=== PATIENT | female | born 1990 | race Hispanic/Latino ===

== ENCOUNTER 2017-06-10 13:41 | Emergency (ER) | payer SELFPAY | END 2017-06-10 14:46 | disposition home or self-care (01) | LOC: ERS 13:41 | DX: L73.2 Hidradenitis suppurativa (principal); F41.9 Anxiety disorder, unspecified; Z87.891 Personal history of nicotine dependence | CPT/HCPCS: 99282 ==

== ENCOUNTER 2017-06-17 20:35 | Emergency (ER) | payer SELFPAY ==
[2017-06-17] MEDS ORDERED: diphenhydrAMINE 25 MG CAP ONE (22:09)
== END 2017-06-17 22:34 | disposition home or self-care (01) ==
LOC: ERS 20:35
DX: B35.9 Dermatophytosis, unspecified (principal); R21 Rash and other nonspecific skin eruption; F41.9 Anxiety disorder, unspecified; Z87.891 Personal history of nicotine dependence
CPT/HCPCS: 99282

== ENCOUNTER 2017-10-08 11:53 | Emergency (ER) | payer SELFPAY, OTHER | END 2017-10-08 13:05 | disposition left against medical advice (07) | LOC: ERS 11:53 | DX: Z53.21 Procedure and treatment not carried out due to patient leaving prior to being seen by health care provider (principal) ==

== ENCOUNTER 2017-11-27 20:17 | Emergency (ER) | payer OTHER, SELFPAY ==
[~2017-11-27 20:17] MED LIST: ISOVUE-370 76%-LOCM 1 ML ONE
[2017-11-27 20:40] LABS: Bilirubin Negative (Negative); Blood, Urine Negative (Negative); Clarity CLOUDY (Clear); Glucose, Urine (Dipstick) Negative (Negative); Leukocyte Negative (Negative); Nitrite Negative (Negative); Protein, Urine (Dipstick) Negative (Neg-Trace); Specific Gravity, Urine 1.021 (1.002-1.036); Urobilinogen 0.2 mg/dL (0.2-1.0); pH, Urine 7.5 (5.0-9.0)
[2017-11-27 20:47] LABS: Pregnancy Test - Urine (BHCG) Negative (Negative); Pregu Control Background? CLEAR/WHITE (CLR/WHITE); Pregu Control Bar Appear? YES (CONTROL BAR); Specific Gravity 1.021 (1.002-1.036)
[2017-11-27 21:13] LABS: #Basophils 0.1 thou/uL (0.0-0.2); #Eosinphils 0.1 thou/uL (0.0-0.7); #Lymphocytes 1.9 thou/uL (1.20-3.40); #Monocytes 0.5 thou/uL (0.11-0.59); #Neutrophils 5.7 thou/uL (1.40-6.50); %Basophils 0.8 % (0.0-1.0); %Eosinophils 1.8 % (0.0-10.0); %Neutrophils 68.5 % (42.0-75.0); Hemoglobin 13.8 g/dL (12.0-16.0); Mean Corpuscular Hemoglobin 32.9 pg (27.0-31.0); Mean Corpuscular Volume 91.4 fl (81.0-99.0); Mean Platelet Volume 8.4 fL (7.4-10.4); Platelet Count 239 thou/uL (130-400); RBC Distribution Width 11.6 % (11.5-14.5); Red Blood Cell (RBC) Count 4.18 mill/uL (4.20-5.40); White Blood Cell (WBC) Count 8.3 thou/uL (4.8-10.8)
[2017-11-27 21:34] LABS: ALT (SGPT) 21 U/L (8-55); AST (SGOT) 15 U/L (5-34); Albumin 4.3 g/dL (3.5-5.0); Alkaline Phosphatase 74 U/L (40-150); Anion Gap 12 mmol/L (10-20); BUN (Urea Nitrogen) 9 mg/dL (7.0-18.7); Bilirubin, Total 0.4 mg/dL (0.2-1.2); Calc. Creatinine Clearance 0 mL/min (70-130); Calcium 9.3 mg/dL (7.8-10.44); Carbon Dioxide 25 mmol/L (22-29); Chloride 106 mmol/L (98-107); Estimated GFR-MDRD Greater than 90; Globulin 2.9 g/dL (2.4-3.5); Glucose 131 mg/dL (70-105); Lipase 20 U/L (8-78); Potassium 3.3 mmol/L (3.5-5.1); Protein, Total 7.2 g/dL (6.0-8.3); Sodium 140 mmol/L (136-145)
[2017-11-27] MEDS ORDERED: Ketorolac Tromethamine 30 MG/ML VIAL ONE (22:28)
--- NOTE | 2017-11-27 22:57 | CT ---
CT ABDOMEN AND PELVIS WITH IV CONTRAST 11/27/17 HISTORY: Abdominal pain. Patient states left sided flank pain that started one day ago and initially started o n the right but moved to the left. History of prior cholecystectomy and hysterectomy. COMPARISON: Noncontrast CT abdomen and pelvis on 03/18/17. FINDINGS: Lung bases remain clear. Postsurgical changes related to cholecystectomy are noted. There is stable calcifications in the brianda pheral aspect of the right hepatic lobe. Liver is otherwise normal in appearance. A 1.7 cm hypodense lesion is seen within the mid portion right kidney demonstrating fluid attenuation suggesting a small parapelvic renal cyst. The kidneys otherwise have a normal CT appearance bilatera lly . The spleen, pancreas, bilateral adrenal glands, and urinary bladder demonstrate a normal CT appearanc e. There is evidence of hysterectomy. The appendix is visualized and normal in caliber. Midline scarring is seen in an infraumbilical location. The left ovary again appears mildly enlarged, but this is a stable finding. There is no free fluid, fluid collection, or lymphadenopathy seen in the abdominal or pelvis. IMPRESSION: 1. No acute findings in the abdomen or pelvis. 2. Postsurgical changes related to cholecystectomy and hysterectomy. 3. Right renal parapelvic cyst. POS: [facility]
== END 2017-11-27 22:47 | disposition home or self-care (01) ==
LOC: ERS 20:17
DX: F41.9 Anxiety disorder, unspecified; R10.31 Right lower quadrant pain
CPT/HCPCS: 74177; 80053; 81003; 81025; 83690; 85025; 96361; 96374; J1885

== ENCOUNTER 2018-06-26 10:14 | Emergency (ER) | payer SELFPAY ==
[2018-06-26 11:16] LABS: #Eosinphils 0.2 thou/uL (0.0-0.7); #Lymphocytes 1.5 thou/uL (1.20-3.40); #Monocytes 0.5 thou/uL (0.11-0.59); #Neutrophils 4.3 thou/uL (1.40-6.50); %Basophils 0.5 % (0.0-1.0); %Eosinophils 2.4 % (0.0-10.0); %Lymphocytes 22.5 % (21.0-51.0); %Monocytes 7.6 % (0.0-10.0); %Neutrophils 66.9 % (42.0-75.0); Hemoglobin 13.5 g/dL (12.0-16.0); Mean Corpuscular HGB CONC 33.9 g/dL (32.0-36.0); Mean Corpuscular Hemoglobin 31.9 pg (27.0-31.0); Mean Corpuscular Volume 94.2 fL (78.0-98.0); Mean Platelet Volume 8.4 fL (7.4-10.4); Platelet Count 252 thou/uL (130-400); RBC Distribution Width 11.9 % (11.5-14.5); Red Blood Cell (RBC) Count 4.25 mill/uL (4.20-5.40); White Blood Cell (WBC) Count 6.5 thou/uL (4.8-10.8)
[2018-06-26 11:29] LABS: Pregnancy Test - Urine (BHCG) Negative (Negative); Pregu Control Background? CLEAR/WHITE (CLR/WHITE); Pregu Control Bar Appear? YES (CONTROL BAR)
[2018-06-26 11:30] LABS: ALT (SGPT) 17 U/L (8-55); AST (SGOT) 13 U/L (5-34); Albumin 4.3 g/dL (3.5-5.0); Alkaline Phosphatase 74 U/L (40-150); Anion Gap 12 mmol/L (10-20); BUN (Urea Nitrogen) 10 mg/dL (7.0-18.7); Bilirubin, Total 0.4 mg/dL (0.2-1.2); Calc. Creatinine Clearance 0 mL/min (70-130); Calcium 9.8 mg/dL (7.8-10.44); Carbon Dioxide 26 mmol/L (22-29); Chloride 105 mmol/L (98-107); Estimated GFR-MDRD Greater than 90; Globulin 2.8 g/dL (2.4-3.5); Glucose 89 mg/dL (70-105); Lipase 20 U/L (8-78); Potassium 3.8 mmol/L (3.5-5.1); Protein, Total 7.1 g/dL (6.0-8.3); Sodium 139 mmol/L (136-145)
[2018-06-26 11:33] LABS: Bilirubin Negative (Negative); Blood, Urine Negative (Negative); Clarity CLEAR (Clear); Glucose, Urine (Dipstick) Negative (Negative); Leukocyte Negative (Negative); Nitrite Negative (Negative); Protein, Urine (Dipstick) Negative (Neg-Trace); Specific Gravity, Urine 1.019 (1.002-1.036)
[2018-06-26 11:35] LABS: Specific Gravity 1.019 (1.002-1.036)
== END 2018-06-26 12:13 | disposition home or self-care (01) ==
LOC: ERS 10:14
DX: R10.30 Lower abdominal pain, unspecified (principal); F41.9 Anxiety disorder, unspecified
CPT/HCPCS: 36415; 80053; 81003; 81025; 83690; 85025; 99284

== ENCOUNTER 2018-11-03 19:40 | Emergency (ER) | payer SELFPAY ==
[2018-11-03] MEDS ORDERED: Ketorolac Tromethamine 30 MG/ML VIAL ONE (19:59)
[2018-11-03] MEDS ORDERED: Ondansetron PF 4 MG/2 ML Vial ONE (19:59)
[2018-11-03 20:41] LABS: #Eosinphils 0.1 thou/uL (0.0-0.7); #Lymphocytes 0.9 thou/uL (1.20-3.40); #Monocytes 0.5 thou/uL (0.11-0.59); #Neutrophils 13.5 thou/uL (1.40-6.50); %Basophils 0.1 % (0.0-1.0); %Eosinophils 0.6 % (0.0-10.0); %Lymphocytes 5.8 % (21.0-51.0); %Monocytes 3.2 % (0.0-10.0); %Neutrophils 90.4 % (42.0-75.0); Mean Corpuscular HGB CONC 34.2 g/dL (32.0-36.0); Mean Corpuscular Hemoglobin 32.3 pg (27.0-31.0); Mean Corpuscular Volume 94.3 fL (78.0-98.0); Mean Platelet Volume 8.8 fL (7.4-10.4); Platelet Count 226 thou/uL (130-400); RBC Distribution Width 11.9 % (11.5-14.5); Red Blood Cell (RBC) Count 4.33 mill/uL (4.20-5.40); White Blood Cell (WBC) Count 14.9 thou/uL (4.8-10.8)
[2018-11-03 20:47] LABS: Bilirubin Negative (Negative); Blood, Urine Small (Negative); Clarity CLEAR (Clear); Glucose, Urine (Dipstick) Negative (Negative); Leukocyte Moderate (Negative); Nitrite Negative (Negative); Protein, Urine (Dipstick) 30 mg/dL (Neg-Trace); Specific Gravity, Urine 1.017 (1.002-1.036); Urobilinogen 0.2 mg/dL (0.2-1.0)
[2018-11-03 20:47] LABS: ALT (SGPT) 16 U/L (8-55); AST (SGOT) 13 U/L (5-34); Albumin 4.3 g/dL (3.5-5.0); Alkaline Phosphatase 82 U/L (40-150); Anion Gap 12 mmol/L (10-20); BUN (Urea Nitrogen) 10 mg/dL (7.0-18.7); Bilirubin, Total 0.4 mg/dL (0.2-1.2); Calc. Creatinine Clearance 0 mL/min (70-130); Calcium 9.5 mg/dL (7.8-10.44); Carbon Dioxide 27 mmol/L (22-29); Chloride 104 mmol/L (98-107); Estimated GFR-MDRD Greater than 90; Globulin 2.9 g/dL (2.4-3.5); Glucose 88 mg/dL (70-105); Potassium 3.7 mmol/L (3.5-5.1); Protein, Total 7.2 g/dL (6.0-8.3); Sodium 139 mmol/L (136-145)
[2018-11-03 20:48] LABS: Bacteria/HPF 1+ HPF (None Seen); Hyaline Casts/LPF 7-10 HYALINE CAST LPF (0-3 Hyaline); Squamous Epithelial None Seen HPF (0-3)
[2018-11-03] MEDS ORDERED: cefTRIAXone\\ROCEPHIN 1 GM VIAL ONE (21:13)
[2018-11-03] MEDS ORDERED: Sodium Chloride 0.9% 100 ML ONE (21:13)
== END 2018-11-03 21:57 | disposition home or self-care (01) ==
LOC: ERS 19:40
DX: N10 Acute pyelonephritis (principal); F41.9 Anxiety disorder, unspecified
CPT/HCPCS: 80053; 81003; 81015; 85025; 96365; 96375; J0696; J1885; J2405; J7050

== ENCOUNTER 2019-08-31 19:47 | Emergency (ER) | payer SELFPAY ==
[2019-08-31 21:16] LABS: #Basophils 0.1 thou/uL (0.0-0.2); #Eosinphils 0.1 thou/uL (0.0-0.7); #Monocytes 0.7 thou/uL (0.11-0.59); #Neutrophils 6.3 thou/uL (1.40-6.50); %Basophils 0.6 % (0.0-1.0); %Eosinophils 1.3 % (0.0-10.0); %Lymphocytes 21.8 % (21.0-51.0); %Monocytes 7.1 % (0.0-10.0); %Neutrophils 69.1 % (42.0-75.0); Hemoglobin 13.9 g/dL (12.0-16.0); Mean Corpuscular HGB CONC 34.7 g/dL (32.0-36.0); Mean Corpuscular Hemoglobin 31.5 pg (27.0-31.0); Mean Corpuscular Volume 90.8 fL (78.0-98.0); Mean Platelet Volume 8.6 fL (7.4-10.4); Platelet Count 261 thou/uL (130-400); RBC Distribution Width 11.5 % (11.5-14.5); White Blood Cell (WBC) Count 9.1 thou/uL (4.8-10.8)
[2019-08-31 21:38] LABS: ALT (SGPT) 21 U/L (8-55); AST (SGOT) 16 U/L (5-34); Albumin 4.4 g/dL (3.5-5.0); Alkaline Phosphatase 77 U/L (40-110); Anion Gap 12 mmol/L (10-20); BUN (Urea Nitrogen) 10 mg/dL (7.0-18.7); Bilirubin, Total 0.7 mg/dL (0.2-1.2); Calc. Creatinine Clearance 0 mL/min (70-130); Calcium 9.4 mg/dL (7.8-10.44); Carbon Dioxide 27 mmol/L (22-29); Chloride 103 mmol/L (98-107); Estimated GFR-MDRD Greater than 90; Globulin 2.9 g/dL (2.4-3.5); Glucose 89 mg/dL (70-105); Lipase 18 U/L (8-78); Potassium 3.7 mmol/L (3.5-5.1); Protein, Total 7.3 g/dL (6.0-8.3); Sodium 138 mmol/L (136-145)
[2019-08-31 21:54] LABS: Bilirubin Negative (Negative); Blood, Urine Negative (Negative); Clarity Clear (Clear); Glucose, Urine (Dipstick) Normal (Negative); Leukocyte Negative Leu/uL (Negative); Nitrite Negative (Negative); Protein, Urine (Dipstick) 10 mg/dL (Neg-Trace)
[2019-08-31 21:58] LABS: Pregnancy Test - Urine (BHCG) Negative (Negative); Pregu Control Background? CLEAR/WHITE (CLR/WHITE); Pregu Control Bar Appear? YES (CONTROL BAR); Specific Gravity 1.027 (1.002-1.036)
[2019-08-31] MEDS ORDERED: Ketorolac Tromethamine 30 MG/ML VIAL ONE (22:30)
== END 2019-08-31 23:22 | disposition home or self-care (01) ==
LOC: ERS 19:47
DX: M54.9 Dorsalgia, unspecified (principal); F41.9 Anxiety disorder, unspecified; Z79.899 Other long term (current) drug therapy
CPT/HCPCS: 36415; 80053; 81003; 81025; 83690; 85025; 96372; 99284; J1885

== ENCOUNTER 2020-05-29 12:33 | Emergency (ER) | payer OTHER, SELFPAY ==
[2020-05-29] MEDS ORDERED: Ondansetron ODT 4 MG TAB ONE (13:11)
[2020-05-29] MEDS ORDERED: Dexamethasone 10 MG/ML VIAL ONE (13:12)
[2020-05-29] MEDS ORDERED: Bicillin LA 1.2 MILLION UNITS/2 ML SYRINGE ONE (14:33)
== END 2020-05-29 14:59 | disposition home or self-care (01) ==
LOC: ERS 12:33
DX: J02.0 Streptococcal pharyngitis (principal); F41.9 Anxiety disorder, unspecified
CPT/HCPCS: 87430; 96372; 99283; J0561; J1100; Q0162

== ENCOUNTER 2020-06-26 16:28 | Emergency (ER) | payer OTHER, SELFPAY ==
[2020-06-26 18:47] LABS: #Eosinphils 0.1 thou/uL (0.0-0.7); #Lymphocytes 2.2 thou/uL (1.20-3.40); #Monocytes 0.9 thou/uL (0.11-0.59); #Neutrophils 11.5 thou/uL (1.40-6.50); %Basophils 0.3 % (0.0-1.0); %Lymphocytes 14.8 % (21.0-51.0); %Monocytes 5.8 % (0.0-10.0); Hemoglobin 14.8 g/dL (12.0-16.0); Mean Corpuscular HGB CONC 35.3 g/dL (32.0-36.0); Mean Corpuscular Hemoglobin 32.9 pg (27.0-31.0); Mean Corpuscular Volume 93.1 fL (78.0-98.0); Mean Platelet Volume 8.3 fL (7.4-10.4); Platelet Count 291 thou/uL (130-400); White Blood Cell (WBC) Count 14.7 thou/uL (4.8-10.8)
[2020-06-26 19:08] LABS: ALT (SGPT) 57 U/L (8-55); AST (SGOT) 34 U/L (5-34); Albumin 4.5 g/dL (3.5-5.0); Alkaline Phosphatase 82 U/L (40-110); Anion Gap 14 mmol/L (10-20); BUN (Urea Nitrogen) 8 mg/dL (7.0-18.7); Bilirubin, Total 0.3 mg/dL (0.2-1.2); Calc. Creatinine Clearance 0 mL/min (70-130); Calcium 9.9 mg/dL (7.8-10.44); Carbon Dioxide 28 mmol/L (22-29); Chloride 102 mmol/L (98-107); Estimated GFR-MDRD 90; Globulin 3.4 g/dL (2.4-3.5); Glucose 104 mg/dL (70-105); Lipase 16 U/L (8-78); Potassium 4.3 mmol/L (3.5-5.1); Protein, Total 7.9 g/dL (6.0-8.3); Sodium 140 mmol/L (136-145)
[2020-06-26 20:10] LABS: Bilirubin Negative (Negative); Blood, Urine Large (Negative); Clarity Cloudy (Clear); Glucose, Urine (Dipstick) Negative (Negative); Ketone, Urine Negative (Negative); Leukocyte Small (Negative); Nitrite Positive (Negative); Protein, Urine (Dipstick) 100 mg/dL (Neg-Trace); Urobilinogen 0.2 mg/dL (Less than 2); pH, Urine 6.5 (5.0-9.0)
[2020-06-26 20:11] LABS: Specific Gravity, Urine 1.019 (1.002-1.036)
[2020-06-26 20:13] LABS: Pregnancy Test - Urine (BHCG) Negative (Negative); Pregu Control Background? CLEAR/WHITE (CLR/WHITE); Pregu Control Bar Appear? YES (CONTROL BAR); Specific Gravity 1.019 (1.002-1.036)
[2020-06-26 20:20] LABS: Bacteria/HPF 4+ HPF (None Seen); Squamous Epithelial 0-3 HPF (0-3); WBC/HPF Greater Than 50 HPF (0-3)
[2020-06-26] MEDS ORDERED: cefTRIAXone\\ROCEPHIN 2 GM VIAL ONE (21:03)
[2020-06-26] MEDS ORDERED: Morphine 4 MG/ML VIAL ONE (21:03)
[2020-06-26] MEDS ORDERED: Ketorolac Tromethamine 30 MG/ML VIAL ONE (21:03)
== END 2020-06-26 22:00 | disposition home or self-care (01) ==
LOC: ERS 16:28
DX: N39.0 Urinary tract infection, site not specified (principal); F41.9 Anxiety disorder, unspecified
CPT/HCPCS: 36415; 80053; 81003; 81015; 81025; 83690; 85025; 87077; 87086; 87186; 96365; 96375; J0696; J1885; J2270

== ENCOUNTER 2020-09-25 09:18 | Emergency (ER) | payer OTHER, SELFPAY ==
--- NOTE | 2020-09-25 10:04 | RAD ---
EXAM: Chest PA and lateral: HISTORY: Chest pain. COMPARISON: 08/12/2018, 06/28/2016 FINDINGS: Heart: Normal cardiac silhouette Aorta: Unremarkable Pulmonary vessels: Normal Costophrenic angles: Costophrenic angles are clear. Lungs: No consolidation or masses. Pneumothorax: No pneumothorax Osseous structures: No osseous abnormalities IMPRESSION: No acute cardiopulmonary process.
[2020-09-25 19:34] LABS: SARS-CoV-2 PCR by NAA Not Detected (NotDetected)
== END 2020-09-25 12:35 | disposition home or self-care (01) ==
LOC: ERS 09:18
DX: R07.89 Other chest pain (principal); Z20.822 Contact with and (suspected) exposure to COVID-19
CPT/HCPCS: 71046; 87635; 93005; U0003; U0005

== ENCOUNTER 2021-07-28 12:04 | Emergency (ER) | payer SELFPAY ==
[2021-07-29 15:43] LABS: SARS-CoV-2 PCR by NAA Not Detected (NotDetected)
== END 2021-07-28 13:50 | disposition home or self-care (01) ==
LOC: ERS 12:04
DX: J20.9 Acute bronchitis, unspecified (principal); Z20.822 Contact with and (suspected) exposure to COVID-19
CPT/HCPCS: 99284; U0003; U0005

== ENCOUNTER 2022-07-06 09:39 | Emergency (ER) | payer OTHER, SELFPAY ==
[2022-07-06 10:45] LABS: #Eosinphils 0.1 thou/uL (0.0-0.7); #Lymphocytes 1.4 thou/uL (1.20-3.40); #Monocytes 0.9 thou/uL (0.11-0.59); #Neutrophils 4.7 thou/uL (1.40-6.50); %Basophils 0.1 % (0.0-1.0); %Eosinophils 1.9 % (0.0-10.0); Hemoglobin 14.6 g/dL (12.0-16.0); Mean Corpuscular HGB CONC 33.7 g/dL (32.0-36.0); Mean Corpuscular Hemoglobin 31.8 pg (27.0-31.0); Mean Corpuscular Volume 94.3 fl (78.0-98.0); Mean Platelet Volume 8.4 fL (7.4-10.4); Platelet Count 281 10x3/uL (130-400); RBC Distribution Width 11.7 % (11.5-14.5); Red Blood Cell (RBC) Count 4.59 mill/uL (4.20-5.40); White Blood Cell (WBC) Count 7.1 10x3/uL (4.8-10.8)
[2022-07-06] MEDS ORDERED: Ketorolac Tromethamine 30 MG/ML VIAL ONE (10:52)
[2022-07-06] MEDS ORDERED: Mag-Al 1200 mg/1200 mg/30 ML UDCUP ONE (10:52)
[2022-07-06] MEDS ORDERED: Dicyclomine 20 MG/2 ML VIAL ONE (10:52)
[2022-07-06] MEDS ORDERED: Lidocaine Viscous Sol 2% 15 ml UD Cup ONE (10:52)
[2022-07-06] MEDS ORDERED: Ondansetron ODT 8 MG TAB ONE (10:52)
[2022-07-06 11:17] LABS: ALT (SGPT) 32 U/L (8-55); AST (SGOT) 24 U/L (5-34); Albumin 4.4 g/dL (3.5-5.0); Alkaline Phosphatase 73 U/L (40-110); Anion Gap 15 mmol/L (10-20); BUN (Urea Nitrogen) 7 mg/dL (7.0-18.7); Bilirubin, Total 0.5 mg/dL (0.2-1.2); Calc. Creatinine Clearance 0 mL/min (70-130); Calcium 9.3 mg/dL (7.8-10.44); Carbon Dioxide 24 mmol/L (22-29); Chloride 103 mmol/L (98-107); Estimated GFR 118; Globulin 2.9 g/dL (2.4-3.5); Glucose 87 mg/dL (70-105); Potassium 3.5 mmol/L (3.5-5.1); Protein, Total 7.3 g/dL (6.0-8.3); Sodium 138 mmol/L (136-145)
[2022-07-06 11:23] LABS: Bacteria/HPF None Seen HPF (None Seen); Bilirubin Negative (Negative); Blood, Urine Negative (Negative); Clarity Turbid (Clear); Glucose, Urine (Dipstick) Normal (Negative); Ketone, Urine Trace mg/dL (Negative); Leukocyte 25 Leu/uL (Negative); Nitrite Negative (Negative); Pregnancy Test - Urine (BHCG) Negative (Negative); Pregu Control Background? CLEAR/WHITE (CLR/WHITE); Pregu Control Bar Appear? YES (CONTROL BAR); Protein, Urine (Dipstick) 50 mg/dL (Neg-Trace); RBC/HPF 0-3 HPF (0-3); Specific Gravity 1.038 (1.002-1.036); Specific Gravity, Urine 1.038 (1.002-1.036)
[2022-07-06] MEDS ORDERED: Iopamidol-370 76% 500 ML 1 ML ONE (14:14)
== END 2022-07-06 12:58 | disposition home or self-care (01) ==
LOC: ERS 09:39
DX: K64.4 Residual hemorrhoidal skin tags (principal)
CPT/HCPCS: 36415; 74177; 80053; 81003; 81015; 81025; 82274; 83690; 85025; 96372; J1885; Q0162; Q9967

== ENCOUNTER 2023-09-10 20:51 | Emergency (ER) | payer BC, SELFPAY ==
[2023-09-10] MEDS ORDERED: Ketorolac Tromethamine 30 MG (1 mL) VIAL ONE (21:51)
[2023-09-10 22:04] LABS: #Eosinphils 0.2 thou/uL (0.0-0.7); #Monocytes 0.7 thou/uL (0.11-0.59); #Neutrophils 6.1 thou/uL (1.40-6.50); %Basophils 0.4 % (0.0-1.0); %Eosinophils 2.5 % (0.0-10.0); %Lymphocytes 23.1 % (21.0-51.0); %Monocytes 7.2 % (0.0-10.0); %Neutrophils 66.5 % (42.0-75.0); Hematocrit 41.3 % (36.0-47.0); Hemoglobin 14.2 g/dL (12.0-16.0); Mean Corpuscular HGB CONC 34.4 g/dL (32.0-36.0); Mean Corpuscular Hemoglobin 31.8 pg (27.0-31.0); Mean Corpuscular Volume 92.4 fl (78.0-98.0); Mean Platelet Volume 9.8 fL (7.4-10.4); Platelet Count 383 10x3/uL (130-400); RBC Distribution Width 12.9 % (11.5-14.5); Red Blood Cell (RBC) Count 4.47 mill/uL (4.20-5.40); White Blood Cell (WBC) Count 9.2 10x3/uL (4.8-10.8)
[2023-09-10 22:29] LABS: ALT (SGPT) 35 U/L (8-55); AST (SGOT) 19 U/L (5-34); Albumin 4.4 g/dL (3.5-5.0); Alkaline Phosphatase 72 U/L (40-110); Anion Gap 11 mmol/L (10-20); BUN (Urea Nitrogen) 11 mg/dL (7.0-18.7); Bilirubin, Total 0.3 mg/dL (0.2-1.2); Calc. Creatinine Clearance 0 mL/min (70-130); Calcium 9.6 mg/dL (7.8-10.44); Carbon Dioxide 27 mmol/L (22-29); Chloride 106 mmol/L (98-107); Estimated GFR 108; Glucose 109 mg/dL (70-105); Protein, Total 7.4 g/dL (6.0-8.3); Sodium 140 mmol/L (136-145)
[2023-09-10 22:31] LABS: Troponin I Less than 0.010 ng/mL (< 0.028)
[2023-09-10] MEDS ORDERED: Lorazepam 1 MG TAB ONE (22:43)
[2023-09-10] MEDS ORDERED: Orphenadrine Citrate 60 MG/2 ML VIAL ONE (22:43)
== END 2023-09-11 00:48 | disposition home or self-care (01) ==
LOC: ERS 20:51
DX: R07.9 Chest pain, unspecified (principal)
CPT/HCPCS: 36415; 71045; 80053; 84484; 85025; 93005; 96372; J1885; J2360

== ENCOUNTER 2023-10-13 10:58 | Outpatient (CLI) | payer BC | END 2023-10-13 10:59 | disposition home or self-care (01) | LOC: DTY/OP 10:58 | PROVIDERS: ATTEND Surgery | DX: E66.01 Morbid (severe) obesity due to excess calories (principal); Z68.41 Body mass index [BMI] 40.0-44.9, adult | CPT/HCPCS: 97802 ==

== ENCOUNTER 2023-11-04 14:59 | Outpatient (CLI) | payer BC ==
[2023-11-04 17:07] LABS: #Basophils 0.1 10x3/uL (0.0-0.2); #Eosinphils 0.2 10x3/uL (0.0-0.5); #Monocytes 0.7 10x3/uL (0.0-1.1); #Neutrophils 7.3 10x3/uL (1.5-8.4); %Basophils 0.5 % (0.0-2.0); %Eosinophils 1.6 % (0.0-6.0); %Monocytes 6.9 % (0.0-10.0); %Neutrophils 74.7 % (40.0-75.0); Hematocrit 38.4 % (34.9-44.5); Hemoglobin 13.4 g/dL (12.0-15.5); Mean Corpuscular HGB CONC 34.9 g/dL (32.0-36.0); Mean Corpuscular Hemoglobin 30.9 pg (27.0-33.0); Mean Corpuscular Volume 88.7 fl (81.6-98.3); Mean Platelet Volume 10.4 fl (7.4-10.4); Platelet Count 352 10x3/uL (150-450); Red Blood Cell (RBC) Count 4.33 10x6/uL (3.90-5.03); White Blood Cell (WBC) Count 9.8 10x3/uL (3.5-10.5)
[2023-11-04 17:51] LABS: ALT (SGPT) 32 U/L (8-55); AST (SGOT) 19 U/L (5-34); Albumin 4.1 g/dL (3.5-5.0); Alkaline Phosphatase 65 U/L (40-110); Anion Gap 14 mmol/L (10-20); BUN (Urea Nitrogen) 9 mg/dL (7.0-18.7); Bilirubin, Total 0.6 mg/dL (0.2-1.2); Calc. Creatinine Clearance 0 mL/min (70-130); Carbon Dioxide 22 mmol/L (22-29); Chloride 106 mmol/L (98-107); Estimated GFR 118; Globulin 2.7 g/dL (2.4-3.5); Glucose 81 mg/dL (70-105); Potassium 4.1 mmol/L (3.5-5.1); Protein, Total 6.8 g/dL (6.0-8.3); Sodium 138 mmol/L (136-145)
[2023-11-04 21:02] LABS: Hemoglobin A1c 4.8 % (4.0-6.0)
== END 2023-11-04 15:00 | disposition home or self-care (01) ==
LOC: LABBT 14:59
PROVIDERS: ATTEND Surgery
DX: Z01.812 Encounter for preprocedural laboratory examination (principal); E66.01 Morbid (severe) obesity due to excess calories
CPT/HCPCS: 80053; 83036; 85025

== ENCOUNTER 2023-11-04 17:00 | Inpatient (IN) | payer BC ==
[2023-11-09] MEDS ORDERED: Sodium Chloride 0.9% 100 ML ONE (10:25)
[2023-11-09] MEDS ORDERED: Heparin 5,000 UNITS/ML VIAL ONE (10:25)
[2023-11-09] MEDS ORDERED: CEFAZOLIN 2 GM VIAL ONE (10:25)
[2023-11-09] MEDS ORDERED: Lidocaine 1% PF 5 ML VIAL ONE (12:43)
[2023-11-09] MEDS ORDERED: fentaNYL PF 100 MCG/2 ML SYRINGE ONE (12:43)
[2023-11-09] MEDS ORDERED: PROPOFOL 20 ML ONE (12:43)
[2023-11-09] MEDS ORDERED: Rocuronium Bromide 10 MG/ML (10ML VIAL) ONE (12:43)
[2023-11-09] MEDS ORDERED: Propofol 500 MG/50 ML VIAL ONE (12:46)
[2023-11-09] MEDS ORDERED: Bupivacaine 0.25% HCL 30 ML VIAL ONE (12:53)
[2023-11-09] MEDS ORDERED: EPINEPHrine 1 MG/ML VIAL ONE (12:53)
[2023-11-09] MEDS ORDERED: Dexamethasone 20 MG/5 ML VIAL ONE (13:31)
[2023-11-09] MEDS ORDERED: ePHEDrine Sulfate 50 MG/10 ML VIAL ONE (13:35)
[2023-11-09] MEDS ORDERED: Ondansetron PF 4 MG/2 ML Vial ONE ×2 (14:17→15:38)
[2023-11-09] MEDS ORDERED: SUGAMMADEX SODIUM 200 MG/2 ML VIAL ONE (14:27)
[2023-11-09] MEDS ORDERED: Glucagon 1 MG/ML KIT IM PRN (14:49)
[2023-11-09] MEDS ORDERED: diphenhydrAMINE 50 MG/ML VIAL IVP PRN ×2 (14:49→14:52)
[2023-11-09] MEDS ORDERED: hydrALAZINE 20 MG/ML VIAL SLOW IVP PRN (14:49)
[2023-11-09] MEDS ORDERED: Dextrose 5% in Water 1,000 ML IV PRN (14:49)
[2023-11-09] MEDS ORDERED: Promethazine HCl 25 MG/ML VIAL IM PRN ×2 (14:49→14:52)
[2023-11-09] MEDS ORDERED: Ondansetron PF 4 MG/2 ML Vial IVP PRN (14:49)
[2023-11-09] MEDS ORDERED: Hydrocodone-Acetamin 15 ML UDCUP PO PRN ×2 (14:49→14:54)
[2023-11-09] MEDS ORDERED: Dextrose 50% Abboject 50 ML SYRINGE SLOW IVP PRN (14:49)
[2023-11-09] MEDS ORDERED: Ipratropium/Albuterol 3 ML NEB NEB PRN (14:49)
[2023-11-09] MEDS ORDERED: Ondansetron HCl/PF 4 MG/2 ML Vial IVP PRN (14:52)
[2023-11-09] MEDS ORDERED: Promethazine HCl 25 MG/ML VIAL SLOW IVP PRN (14:52)
[2023-11-09] MEDS ORDERED: diphenhydrAMINE 50 MG/ML VIAL IM PRN (14:52)
[2023-11-09] MEDS ORDERED: FENTANYL 500 MCG/10 ML VIAL 2,000 MCG in Sodium Chloride 0.9% 60 ML IV PRN (14:52)
[2023-11-09] MEDS ORDERED: diphenhydrAMINE 25 MG CAP PO PRN (14:52)
[2023-11-09] MEDS ORDERED: Naloxone HCl 0.4 mg/ml Vial IV PRN (14:52)
[2023-11-09] MEDS ORDERED: Communication Order-Pharmacy FS SCH (15:00)
[2023-11-09] MEDS ORDERED: Fentanyl CADD 100 ML IVPB SCH (15:00)
[2023-11-09] MEDS ORDERED: fentaNYL 50 mcg/mL 1 mL Vial ONE (15:08)
[2023-11-09] MEDS ORDERED: Promethazine HCl 25 MG/ML VIAL ONE (15:38)
[2023-11-09] MEDS: D5 1/2 NS w/20 mEq KCL 1,000 ML IV SCH (20:13)
[2023-11-09] MEDS: Ondansetron PF 4 MG/2 ML Vial IVP PRN (20:50)
[2023-11-09 22:24] VITALS: BMI 40.4
[2023-11-10 05:58] LABS: #Monocytes 0.7 thou/uL (0.11-0.59); #Neutrophils 7.6 thou/uL (1.40-6.50); %Basophils 0.2 % (0.0-1.0); %Lymphocytes 15.7 % (21.0-51.0); %Monocytes 6.9 % (0.0-10.0); Hematocrit 41.5 % (36.0-47.0); Hemoglobin 14.1 g/dL (12.0-16.0); Mean Corpuscular Hemoglobin 31.1 pg (27.0-31.0); Mean Corpuscular Volume 91.6 fl (78.0-98.0); Mean Platelet Volume 10.5 fL (7.4-10.4); Platelet Count 366 10x3/uL (130-400); RBC Distribution Width 12.6 % (11.5-14.5); Red Blood Cell (RBC) Count 4.53 mill/uL (4.20-5.40); White Blood Cell (WBC) Count 9.9 10x3/uL (4.8-10.8)
[2023-11-10 06:07] LABS: Anion Gap 14 mmol/L (10-20); BUN (Urea Nitrogen) 5 mg/dL (7.0-18.7); Calc. Creatinine Clearance 181 mL/min (70-130); Calcium 9.4 mg/dL (7.8-10.44); Carbon Dioxide 24 mmol/L (22-29); Chloride 105 mmol/L (98-107); Estimated GFR 114; Glucose 108 mg/dL (70-105); Potassium 4.5 mmol/L (3.5-5.1); Sodium 138 mmol/L (136-145)
[2023-11-10] MEDS ORDERED: Ketorolac Tromethamine 30 MG (1 mL) VIAL IVP PRN (09:28)
[2023-11-10] MEDS: Enoxaparin 40 MG (0.4 mL) SYRINGE SC SCH (10:08)
[2023-11-10] MEDS: Pantoprazole 40 MG VIAL IVP SCH (10:08)
[2023-11-10] MEDS: Hydrocodone-Acetamin 15 ML UDCUP PO PRN (15:19)
[2023-11-11 11:49] VITALS: BP 135/91; TEMP 98
== END 2023-11-11 13:40 | disposition home or self-care (01) | DRG 621 ==
LOC: T4-A 11-09 07:56 → SURG A 11-09 19:23
PROVIDERS: ADMIT Surgery; ATTEND Surgery
PROC: 0DB64Z3 Excision of Stomach, Percutaneous Endoscopic Approach, Vertical (ICD-10-PCS; principal; 2023-11-09)
PROC: 8E0W4CZ Robotic Assisted Procedure of Trunk Region, Percutaneous Endoscopic Approach (ICD-10-PCS; 2023-11-09)
PROC: 3E033XZ Introduction of Vasopressor into Peripheral Vein, Percutaneous Approach (ICD-10-PCS; 2023-11-09)
DX: E66.01 Morbid (severe) obesity due to excess calories (principal); Z68.41 Body mass index [BMI] 40.0-44.9, adult; R10.13 Epigastric pain; G89.18 Other acute postprocedural pain
CPT/HCPCS: 36415; 80048; 85025; 88307; 94760; C9113; J0171; J0665; J1100; J1644; J1650; J2405; J2550; J2704; J3010; J3480; J3490